=== PATIENT | male | born 1995 | race Caucasian/White ===

== ENCOUNTER 2018-12-09 12:23 | Emergency (ER) | payer SELFPAY ==
[2018-12-09] MEDS: DIPHTH/TET/ACEL PERTUSS (ADULT) 0.5 ML VIAL IM* (13:25)
[2018-12-09] MEDS: LIDOCAINE 1% (MDV) 20 ML INJ SC (13:26)
[2018-12-09] MEDS: BACITRACIN 0.9 GM OINT TOP (13:26)
[2018-12-09] MEDS: TETANUS IMMUNE GLOB 250 UNIT SYG IM (14:09)
== END 2018-12-09 15:21 | disposition home or self-care (01) ==
LOC: FTE 15:21
DX: S61.412A Laceration without foreign body of left hand, initial encounter (principal); W01.198A Fall on same level from slipping, tripping and stumbling with subsequent striking against other object, initial encounter; Y92.322 Soccer field as the place of occurrence of the external cause; Z23 Encounter for immunization
CPT/HCPCS: 12001; 73130-LT; 90389; 90471; 90715; 96372; 99284-25

== ENCOUNTER 2018-12-11 10:14 | Emergency (ER) | payer SELFPAY | END 2018-12-11 10:58 | disposition home or self-care (01) | LOC: FTE 10:14 | DX: Z48.01 Encounter for change or removal of surgical wound dressing (principal) | CPT/HCPCS: 99281 ==

== ENCOUNTER 2018-12-17 11:54 | Emergency (ER) | payer MEDICAID | END 2018-12-17 12:33 | disposition home or self-care (01) | LOC: E/R 11:54 | DX: Z48.02 Encounter for removal of sutures (principal) | CPT/HCPCS: 99281; Z7502 ==